=== PATIENT | female | born 1960 | race Caucasian/White ===

== ENCOUNTER 2016-10-14 21:52 | Emergency (ER) | payer MEDICAID, OTHER ==
[~2016-10-14 21:52] MED LIST: ALBU1AER INH; ASPI81TA82 PO; BIOT5000 PO; CYCL-36 PO; DIAZ10 PO; FIORINAL2 PO; GABA300C3 PO; HYDR-2768 PO; HYDR-3533 PO; LISI2.5T3 PO; OMEP20TA PO; PERC5TAB12 PO; PROB1TAB PO; PROP20TA3 PO; RANI1TAB5 PO; STOO100T PO; SYMB160A INH; TOPI50TA4 PO
[2016-10-14 21:54] VITALS: BP 116/57; PULSE 79; RESP 18; TEMP 97.5; O2SAT 100
[2016-10-14] MEDS ORDERED: ATOR10TA15 PO (23:45)
[2016-10-14] MEDS ORDERED: PROP20TA3 PO (23:45)
[2016-10-14] MEDS ORDERED: CYCL1TAB29 PO (23:45)
[2016-10-14] MEDS ORDERED: ASPI81CH CHEW (23:45)
[2016-10-14] MEDS ORDERED: RANI75TA8 PO (23:45)
[2016-10-14] MEDS ORDERED: SYMB160A INH (23:45)
[2016-10-14] MEDS ORDERED: stool softner (23:45)
[2016-10-14] MEDS ORDERED: ALBUAER3 INH (23:45)
[2016-10-14] MEDS ORDERED: GABA300C5 PO (23:45)
[2016-10-14] MEDS ORDERED: TOPA50TA7 PO (23:45)
[2016-10-14] MEDS ORDERED: DIAZ10 PO (23:45)
[2016-10-14] MEDS ORDERED: PROBCAP11 (23:45)
[2016-10-14] MEDS ORDERED: BIOT1SUB SL (23:45)
[2016-10-14] MEDS ORDERED: PERC7.5T13 PO (23:45)
[2016-10-14] MEDS ORDERED: OMEP20TA PO (23:45)
[2016-10-15] MEDS ORDERED: ONDANSETRON HCL 4 MG/2 ML VIAL IV ONE
[2016-10-15 00:11] VITALS: O2SAT 98
[2016-10-15 00:24] LABS: AUTOMATED NEUTROPHIL # 2.9 TH/MM3 (1.8-7.7); BASOPHIL # 0.1 TH/MM3 (0-0.2); BASOPHIL % 1.1 % (0.0-2.0); EOSINOPHIL # 0.3 TH/MM3 (0-0.4); EOSINOPHIL % 4.2 % (0.0-4.0); HEMATOCRIT 36.1 % (35.0-46.0); HEMO FLAGS DIFF FINAL; MEAN CELL VOLUME 86.1 FL (80.0-100.0); MEAN CORPUSCULAR HEMOGLOBIN 29.7 PG (27.0-34.0); MEAN CORPUSCULAR HGB CONC 34.5 % (32.0-36.0); MONO % 7.6 % (0.0-8.0); NEUT % 43.1 % (16.0-70.0); PLATELET COUNT 243 TH/MM3 (150-450); RED CELL DISTRIBUTION WIDTH 14.4 % (11.6-17.2); WHITE BLOOD COUNT 6.8 TH/MM3 (4.0-11.0)
[2016-10-15 00:37] LABS: BACTERIA, URINE RARE /hpf; BLOOD, URINE NEG (NEG); COMMENT (UR) CULTURE INDICATED; CULTURE IF INDICATED CULTURE INDICATED; GLUCOSE,URINE NEG (NEG); KETONE, URINE NEG (NEG); MUCUS URINE FEW /lpf (OCC); NITRITE,URINE NEG (NEG); PH, URINE 6.5 (5.0-8.5); RENAL EPITHELIAL CELLS <1 /hpf; SQUAMOUS EPITHELIAL CELL URINE 5 /hpf (0-5); TRANSITIONAL EPI CELLS, URINE <1 /hpf; URINE COLOR LIGHT-YELLOW (YELLW/STRAW)
[2016-10-15 00:37] LABS: ALT (GPT) 40 U/L (10-53); ANION GAP 7 MEQ/L (5-15); AST (GOT) 15 U/L (15-37); BICARBONATE 25.3 MEQ/L (21.0-32.0); BLOOD UREA NITROGEN 15 MG/DL (7-18); CHLORIDE 109 MEQ/L (98-107); GLOMERULAR FILTRATION RATE 32 ML/MIN (>89); POTASSIUM 3.7 MEQ/L (3.5-5.1); SODIUM (NA) 141 MEQ/L (136-145)
[2016-10-15 00:39] LABS: ALKALINE PHOSPHATASE 116 U/L (45-117); APTT (PATIENT) 28.2 SEC (24.3-30.1); INTERNATIONAL NORMALIZED RATIO 0.9 RATIO; TOTAL BILIRUBIN ADULT 0.3 MG/DL (0.2-1.0)
[2016-10-15] MEDS ORDERED: MORPHINE SULFATE 4 MG/ML INJ IV PUSH ONE ×2 (00:45→03:30)
[2016-10-15] MEDS ORDERED: SODIUM CHLOR 0.9% 1000 ML INJ 1,000 ML IV ONE ×2 (00:45)
--- NOTE | 2016-10-15 00:50 | PD ---
HPI Chief Complaint: GI Complaint Time Seen by Provider: 23:34 Travel History International Travel<30 days: No Contact w/Intl Traveler<30days: No Traveled to known affect area: No History of Present Illness HPI The patient is a 56 year old female who presents to the [facility] emergency department with a history of abdominal pain that she reports is present in bilateral lower quadrants of the abdomen and suprapubic area that began on Thursday. She does have a history of abdominal pain in the past, however this is been attributed to problems with acid reflux and peptic ulcer disease. She reports that she last had a colonoscopy and endoscopy 1-2 years ago. She reports that she recently moved to the area and has not established with a primary care physician. On Thursday she went to [facility] for evaluation. She reports that no blood work or urinalysis was done. No imaging was done. The patient was treated for acid reflux with a prescription for Protonix. She reports that the symptoms slightly improved, however they became much worse again today. She reports that she's had nausea and vomiting 4 -5 times, diarrhea 5 times today. She reports that the stool is dark in color. She denies having any blood in her stool or mucus in her stool. She denies any recent antibiotic use. She does have a history of irritable bowel syndrome. She reports a recent problem with urinary urgency and urinary incontinence with urinary frequency. She reports that this is been ongoing for the last 1-2 weeks. She reports that she does have right flank pain. That began [-]. The patient denies any recent fevers, cough, congestion, neck pain, chest pain, shortness of breath, or neurologic symptoms. [facility] Past Medical History Narrative Medical The patient's past medical history is significant for degenerative disc disease and a herniated disc in the back for which she is chronically on Lortab, history of irritable bowel syndrome, peptic ulcer disease, acid reflux, anxiety disorder, asthma, bipolar disorder, history of migraine headaches, history of COPD, history of hypertension, prior history of cerebrovascular accident without any residual weakness, history of chronic renal insufficiency. Asthma: Yes Bipolar Disorder: Yes Anxiety: Yes COPD: Yes Cerebrovascular Accident: Yes Diminished Hearing: No GERD: Yes Headaches: Yes Hypertension: Yes Musculoskeletal: Yes Reproductive: Yes Respiratory: Yes Immunizations Current: Yes Migraines: Yes Influenza Vaccination: No Past Surgical History Narrative Surgical The patient's past surgical history is significant for cholecystectomy, tonsillectomy, hysterectomy. Cholecystectomy: Yes Hysterectomy: Yes Tonsillectomy: Yes Social History Alcohol Use: No Tobacco Use: Yes (1 PK) Substance Use: No Allergies-Medications (Allergen,Severity, Reaction): Coded Allergies: Codeine (Verified Allergy, Unknown, 10/14/16) Haldol (Verified Allergy, Unknown, 10/14/16) Hydrocodone (Verified Allergy, Unknown, 10/14/16) Penicillin (Verified Allergy, Unknown, 10/14/16) FAMILY HX PT HAS NEVER TAKEN Tramadol (Verified Allergy, Unknown, HIVES, 10/14/16) Reported Meds & Prescriptions Reported Meds & Active Scripts Active Reported Topamax (Topiramate) 50 Mg Tab 50 Mg PO BID Ranitidine (Ranitidine HCl) 75 Mg Tab 75 Mg PO BID Propranolol (Propranolol HCl) 20 Mg Tab 20 Mg PO BID Probiotic (Probiotic Product) 1 Cap Cap Percocet (Oxycodone-Acetaminophen) 7.5-325 mg Tab 1 Tab PO Q4H PRN Omeprazole 20 Mg Tab 20 Mg PO DAILY [stool softner] Gabapentin 300 Mg Cap 300 Mg PO TID Valium (Diazepam) 10 Mg Tab 10 Mg PO TID PRN Flexeril (Cyclobenzaprine HCl) 10 Mg Tab 10 Mg PO TID Symbicort Inh (Budesonide/Formoterol Fumarate) 160-4.5 Mcg/Act Aero 2 Puff INH Q12HR Biotin 5,000 Mcg Subl 5,000 Mcg SL Aspirin 81 Mg Chew 81 Mg CHEW DAILY Atorvastatin (Atorvastatin Calcium) 10 Mg Tab 10 Mg PO HS Proair Hfa 8.5 GM Inh (Albuterol Sulfate) 90 Mcg/Act Aer 1 Puff INH Q4H PRN 108 mcg/actuation Review of Systems General / Constitutional: No: Fever Eyes: No: Visual changes HENT: No: Headaches Cardiovascular: No: Chest Pain or Discomfort Respiratory: No: Shortness of Breath Gastrointestinal: No: Abdominal Pain Genitourinary: No: Dysuria Musculoskeletal: No: Pain Skin: No Rash Neurologic: No: Weakness Psychiatric: No: Depression Endocrine: No: Polydipsia Hematologic/Lymphatic: No: Easy Bruising Physical Exam Narrative General: The patient is a well-developed well-nourished female, uncomfortable appearing on arrival, holding her lower abdomen. Head and Neck exam: Head is normocephalic atraumatic. Eyes: EOMI, pupils are equal round and reactive to light. Nose: Midline septum with pink mucous membranes Mouth: Dentition unremarkable. Moist mucus membranes. Posterior oropharynx is not erythematous. No tonsillar hypertrophy. Uvula midline. Airway patent. Neck: No palpable lymphadenopathy. No nuchal rigidity. No thyromegaly. Cardiovascular: Regular rate and rhythm without murmurs, gallops, or rubs. Lungs: Clear to auscultation bilaterally. No wheezes, rhonchi, or rales. Abdomen: Soft, with tenderness on palpation in bilateral lower quadrants of the abdomen and suprapubic area worse on the right compared to the left. No guarding, rebound, or rigidity. Negative Trion sign. No point tenderness specifically over McBurney's point. No tenderness on palpation of the bilateral upper quadrants of the abdomen and midepigastric area. Normal bowel sounds are audible. Extremities: No clubbing, cyanosis, or edema. 2+ pulses in all 4 extremities. No calf tenderness on palpation. Back: No spinous process tenderness to palpation. Right-sided CVA tenderness on palpation. Neurologic Exam: Grossly nonfocal. Skin Exam: No rash noted. Intact skin that is warm and dry. Data Data Last Documented VS Vital Signs Date Time Temp Pulse Resp B/P Pulse Ox O2 Delivery O2 Flow Rate FiO2 10/15/16 02:33 65 18 188/88 100 10/15/16 00:11 Room Air 10/14/16 21:54 97.5 Orders Electrocardiogram (10/14/16 23:47) Complete Blood Count With Diff (10/14/16 23:47) Comprehensive Metabolic Panel (10/14/16 23:47) Prothrombin Time / Inr (Pt) (10/14/16 23:47) Act Partial Throm Time (Ptt) (10/14/16 23:47) C-Reactive Protein (Crp) (10/14/16 23:47) Lipase (10/14/16 23:47) Urinalysis - C+S If Indicated (10/14/16 23:47) Magnesium (Mg) (10/14/16 23:47) Chest, Single Ap (10/14/16 23:47) Iv Access Insert/Monitor (10/14/16 23:47) Ecg Monitoring (10/14/16 23:47) Oximetry (10/14/16 23:47) Lactic Acid (10/14/16 23:47) Sodium Chlor 0.9% 1000 Ml Inj (Ns 1000 M (10/15/16 00:00) Ondansetron Inj (Zofran Inj) (10/15/16 00:00) Ct Abd/Pel W Iv Contrast(Rout) (10/15/16 ) Urine Culture (10/14/16 23:55) Morphine Inj (Morphine Inj) (10/15/16 00:45) Sodium Chlor 0.9% 1000 Ml Inj (Ns 1000 M (10/15/16 00:45) Iodixanol 320 Inj (Rad Ct) (Visipaque 32 (10/15/16 01:26) Labs Laboratory Tests Test 10/14/16 10/15/16 23:55 00:02 Urine Color LIGHT-YELLOW Urine Turbidity HAZY Urine pH 6.5 Urine Specific [place] 1.007 Urine Protein NEG mg/dL Urine Glucose (UA) NEG mg/dL Urine Ketones NEG mg/dL Urine Occult Blood NEG Urine Nitrite NEG Urine Bilirubin NEG Urine Urobilinogen LESS THAN 2.0 MG/DL Urine Leukocyte Esterase LARGE Urine RBC 8 /hpf Urine WBC 58 /hpf Urine Squamous Epithelial 5 /hpf Cells Urine Transitional Epithelial <1 /hpf Cells Urine Renal Epithelial Cells <1 /hpf Urine Bacteria RARE /hpf Urine Mucus FEW /lpf Microscopic Urinalysis Comment CULTURE INDICATED White Blood Count 6.8 TH/MM3 Red Blood Count 4.20 MIL/MM3 Hemoglobin 12.5 GM/DL Hematocrit 36.1 % Mean Corpuscular Volume 86.1 FL Mean Corpuscular Hemoglobin 29.7 PG Mean Corpuscular Hemoglobin 34.5 % Concent Red Cell Distribution Width 14.4 % Platelet Count 243 TH/MM3 Mean Platelet Volume 8.7 FL Neutrophils (%) (Auto) 43.1 % Lymphocytes (%) (Auto) 44.0 % Monocytes (%) (Auto) 7.6 % Eosinophils (%) (Auto) 4.2 % Basophils (%) (Auto) 1.1 % Neutrophils # (Auto) 2.9 TH/MM3 Lymphocytes # (Auto) 3.0 TH/MM3 Monocytes # (Auto) 0.5 TH/MM3 Eosinophils # (Auto) 0.3 TH/MM3 Basophils # (Auto) 0.1 TH/MM3 CBC Comment DIFF FINAL Differential Comment Prothrombin Time 10.0 SEC Prothromb Time International 0.9 RATIO Ratio Activated Partial 28.2 SEC Thromboplast Time Sodium Level 141 MEQ/L Potassium Level 3.7 MEQ/L Chloride Level 109 MEQ/L Carbon Dioxide Level 25.3 MEQ/L Anion Gap 7 MEQ/L Blood Urea Nitrogen 15 MG/DL Creatinine 1.67 MG/DL Estimat Glomerular Filtration 32 ML/MIN Rate Random Glucose 88 MG/DL Lactic Acid Level 0.4 mmol/L Calcium Level 8.9 MG/DL Magnesium Level 2.0 MG/DL Total Bilirubin 0.3 MG/DL Aspartate Amino Transf 15 U/L (AST/SGOT) Alanine Aminotransferase 40 U/L (ALT/SGPT) Alkaline Phosphatase 116 U/L C-Reactive Protein 0.56 MG/DL Total Protein 7.8 GM/DL Albumin 4.0 GM/DL Lipase 112 U/L [facility] Medical Decision Making Medical Screen Exam Complete: Yes Emergency Medical Condition: Yes Medical Record Reviewed: Yes Interpretation(s) Last Impressions Abdomen/Pelvis CT 10/15/16 0000 Signed Impressions: Service Date/Time: Saturday, October 15, 2016 01:25 - CONCLUSION: 1. No acute findings within the abdomen and pelvis. Specifically no obstructive uropathy. 2. Parenchymal scarring in the kidneys. Cholecystectomy with mild biliary ductal dilatation. Small hiatal hernia. Mild constipation. 3. Bilobed low attenuation left adnexal lesion presumably a cyst measuring up to 4.9 x 2.5 cm. Giovanni Chauhan MD Chest X-Ray 10/14/16 2937 Signed Impressions: Service Date/Time: Saturday, October 15, 2016 00:17 - CONCLUSION: 1. Mild basilar airspace disease. No significant effusion. No pneumothorax. Giovanni Chauahn MD Differential Diagnosis Appendicitis, versus colitis, versus gastroenteritis, versus pyelonephritis, versus diverticulitis Narrative Course During the course of the patients emergency department visit, the patients history, examination, and differential diagnosis were reviewed with the patient. The patient had IV access obtained and blood work sent for analysis. The patient was placed on a school lunch monitor with oximetry and blood pressure monitoring. An EKG was done on arrival. The patient's EKG shows a sinus rhythm heart rate is 63, no acute ST segment elevation or depression, T waves are inverted in V1. The patient was provided normal saline 1 L IV fluid bolus, Zofran 4 mg IV, morphine 4 mg IV for nausea. The patient was given a second liter of IV fluids. The patient was given ciprofloxacin 500 mg by mouth 1. The patients laboratory studies were reviewed and remarkable for a CBC that is unremarkable, CMP is remarkable for chloride of 109, creatinine 1.67, however the patient reports having a history of renal insufficiency, lactic acid 0.4, C- reactive protein 0.56, lipase 112, PT PTT unremarkable. Urinalysis shows 8 rbc' s, 58 WBCs, rare bacteria, culture indicated. Radiology studies were reviewed and remarkable for CT scan of the abdomen and pelvis that showed no acute abnormality. The patient had an incidental finding of an adrenal cyst. The patient was given a copy of her CAT scan for follow-up with a primary care physician for monitoring. The patient will be discharged home with a prescription for Cipro and Zofran. The patient is resting comfortably and feels better, is alert and in no distress. The patients results and examination findings were discussed with the patient. The repeat examination is unremarkable and benign. The history, exam, diagnostic testing, and current condition do not suggest any significant pathology to warrant further testing, continued ED treatment, admission, or surgical evaluation at this point. The vital signs have been stable. The patient does not have uncontrollable pain, intractable vomiting, or other significant symptoms. The patient's condition is stable and appropriate for discharge. The patient will pursue further outpatient evaluation with a primary care physician or other designated or consulting physician as indicated in the discharge instructions. The patient expressed understanding and was agreeable with this plan. Diagnosis Primary Impression: Pyelonephritis Referrals: Uli Alvarado MD 3 days Primary Care Physician 3 days Patient Instructions: General Instructions, Kidney Infection (ED) Med/Other Pt SpecificInfo: Prescription(s) given Scripts Ciprofloxacin (Cipro)500 Mg [id number] Mg PO BID 7 Days Ref 0 Prov:Amber Cai MD 10/15/16 Ondansetron Odt (Zofran Odt)4 Mg Tab4 Mg SL Q6HR PRN (Nausea/Vomiting) #7 TAB Ref 0 Prov:Amber Cai MD 10/15/16 Disposition: 01 DISCHARGE HOME Condition: Stable Amber Cai MD Oct 15, 2016 00:50
--- NOTE | 2016-10-15 01:10 | RADRPT ---
EXAM DATE/TIME: 10/15/2016 00:17 [facility] COMPARISON: No previous studies available for comparison. INDICATIONS : Free air. Lower chest pain. MEDICAL HISTORY : None. SURGICAL HISTORY : None. ENCOUNTER: Initial ACUITY: 1 day PAIN SCORE: 6/10 LOCATION: Bilateral chest FINDINGS: There is mild basilar airspace disease. No pleural effusion. No pneumothorax. Heart size mildly enlar ged. CONCLUSION: 1. Mild basilar airspace disease. No significant effusion. No pneumothorax. Giovanni Chauhan MD on October 15, 2016 at 1:07 Board Certified Radiologist. This report was verified electronically.
[2016-10-15] MEDS ORDERED: IODIXANOL 320 MG/ML 10 ML VIAL (for Rad CT) IV ONE (01:26)
--- NOTE | 2016-10-15 02:04 | RADRPT ---
EXAM DATE/TIME: 10/15/2016 01:25 [facility] COMPARISON: No previous studies available for comparison. INDICATIONS : Right flank and pelvic pain past 2 days. IV CONTRAST: 50 cc Visipaque (iodixanol) IV ORAL CONTRAST: No oral contrast ingested. RADIATION DOSE: CTDIvol (mGy) MEDICAL HISTORY : Cerebrovascular disease. Hypertension. Chronic obstructive pulmonary disease.GERD SURGICAL HISTORY : Cholecystectomy. Hysterectomy. ENCOUNTER: Initial ACUITY: 2 days PAIN SCALE: 9/10 LOCATION: Right flank TECHNIQUE: Volumetric scanning of the abdomen and pelvis was performed. Using automated exposure control and ad justment of the mA and/or kV according to patient size, radiation dose was kept as low as reasonably achievable to obtain optimal diagnostic quality images. FINDINGS: There is some scattered groundglass opacity at both lung bases, possibly mild inflammatory changes. Abdomen reveals postop cholecystectomy with mild biliary ductal dilatation. Spleen, adrenals and panc reas unremarkable. Both kidneys have a somewhat lobulated appearance, probably scarring. No renal rashi culi are identified. No ureteral or bladder calculi are seen. No evidence for obstructive uropathy. There is mild constipation. No free air or free fluid. No bowel obstruction. Within the pelvis there is a bilobed cystic appearing structure in the left adnexa measuring up to 4. 9 x 2.5 cm. No right-sided adnexal mass. CONCLUSION: 1. No acute findings within the abdomen and pelvis. Specifically no obstructive uropathy. 2. Parenchymal scarring in the kidneys. Cholecystectomy with mild biliary ductal dilatation. Small hi atal hernia. Mild constipation. 3. Bilobed low attenuation left adnexal lesion presumably a cyst measuring up to 4.9 x 2.5 cm. Giovanni Chauhan MD on October 15, 2016 at 1:56 Board Certified Radiologist. This report was verified electronically.
[2016-10-15 02:33] VITALS: BP 188/88; PULSE 65; RESP 18; O2SAT 100
[2016-10-15] MEDS ORDERED: ZOFR4TAB3 SL (03:10)
[2016-10-15] MEDS ORDERED: CIPR-9 PO (03:10)
[2016-10-15] MEDS ORDERED: CIPROFLOXACIN 500 MG TAB PO ONE (03:15)
--- NOTE | 2016-10-15 20:33 | EKG ---
Date Performed: 10/15/2016 Time Performed: 00:09:00 PTAGE: 56 years EKG: Sinus rhythm LOW QRS VOLTAGE IN PRECORDIAL LEADS BORDERLINE ECG NO PREVIOUS TRACING DOCTOR: Jeri Leon Interpretating Date/Time 10/15/2016 20:32:09
== END 2016-10-15 04:11 | disposition home or self-care (01) ==
LOC: NEPE 21:52
DX: N12 Tubulo-interstitial nephritis, not specified as acute or chronic (principal); B96.89 Other specified bacterial agents as the cause of diseases classified elsewhere; I10 Essential (primary) hypertension; R11.2 Nausea with vomiting, unspecified; F17.200 Nicotine dependence, unspecified, uncomplicated
CPT/HCPCS: 71010; 74177; 80053; 81001; 83605; 83690; 83735; 85025; 85610; 85730; 86140; 87086; 93005; 96361; 96374; 96375; 96376; 99284; J2270; J2405; J7030; Q9967